=== PATIENT | female | born 1955 | race Caucasian/White ===

== ENCOUNTER 2022-05-26 19:06 | Emergency (ER) | payer MEDICARE | END 2022-05-26 20:38 | disposition home or self-care (01) | LOC: BURERS 19:06 | DX: F43.20 Adjustment disorder, unspecified (principal); I10 Essential (primary) hypertension; E78.5 Hyperlipidemia, unspecified; Z79.899 Other long term (current) drug therapy | CPT/HCPCS: 99283 ==